=== PATIENT | female | born 1985 | race Caucasian/White ===

== ENCOUNTER 2018-06-19 13:52 | Outpatient (CLI) | payer BC ==
--- NOTE | 2018-06-19 15:17 | CT ---
LUMBAR SPINE CT NONCONTRAST: INDICATION: Lumbar radiculopathy, low back pain for several months. FINDINGS: The vertebral body heights and disk space heights are relatively well preserved. At the L1-2, L2-3, and L3-4 levels, there is no high-grade central canal or neural foraminal stenosis. L4-5: There is a moderate to large sized left paracentral disk protrusion which is superimposed upon disk bulge with moderate central canal stenosis. There is mild narrowing of each neural foramen. L5-S1: No high-grade central canal or neural foraminal stenosis. There is mild facet osteophytosis bilaterally involving the multilevel mid to lower lumbar spine. Incidental note of heterogeneity and prominence of the partially imaged uterus and adnexa which may r elate to physiologic changes, incompletely evaluated. IMPRESSION: Moderate to large left paracentral disk protrusion at L4-5 with moderate mass effect upon the thecal sac as well as bilateral neural foraminal narrowing, incompletely evaluated on the basis of noncontra st CT. Consider followup imaging to include either MRI lumbar spine or CT lumbar myelogram for more definitive evaluation of essential nerve root compromise. POS: FRIEDA
== END 2018-06-19 13:53 | disposition home or self-care (01) ==
LOC: SCSCT 13:52
PROVIDERS: ATTEND Neurological Surgery
DX: M51.16 Intervertebral disc disorders with radiculopathy, lumbar region (principal); M99.83 Other biomechanical lesions of lumbar region
CPT/HCPCS: 72131